=== PATIENT | female | born 1965 | race African-American/Black ===

== ENCOUNTER 2022-07-27 15:36 | Emergency (ER) | payer MEDICAID, OTHER ==
[~2022-07-27] VITALS: Ht 167.6 cm; Wt 68.0 kg
[2022-07-27] MEDS ORDERED: cloNIDine HCL 0.1 MG TAB PO ONE (16:30)
[2022-07-27] MEDS ORDERED: ACETAMINOPHEN 500 MG TAB PO ONE (16:30)
[2022-07-27] MEDS ORDERED: IBUP600T27 PO (17:59)
[2022-07-27] MEDS ORDERED: CYCL15CA27 PO (18:03)
[2022-07-27 18:06] VITALS: BP 154/85
== END 2022-07-27 18:19 | disposition home or self-care (01) ==
LOC: ER 15:36
DX: S39.012A Strain of muscle, fascia and tendon of lower back, initial encounter (principal); S13.4XXA Sprain of ligaments of cervical spine, initial encounter; I10 Essential (primary) hypertension; V43.52XA Car driver injured in collision with other type car in traffic accident, initial encounter; Y93.89 Activity, other specified; Y92.89 Other specified places as the place of occurrence of the external cause; Y99.8 Other external cause status
CPT/HCPCS: 72040; 72100